=== PATIENT | male | born 1995 | race Caucasian/White ===

== ENCOUNTER 2020-12-04 19:24 | Emergency (ER) | payer MEDICAID ==
--- NOTE | 2020-12-04 20:33 | XRAY Report ---
PROCEDURE: Ankle 3 View LT INDICATIONS: fall, ankle pain TECHNIQUE: 3 views of the ankle were acquired. COMPARISON: None FINDINGS: Bones: No fractures or dislocations. Ankle mortise is normally aligned. No suspicious bony lesions . Soft tissues: No tibiotalar joint effusion. Achilles tendon appears normal. IMPRESSION: No fracture. No osseous lesion. If there are persistent symptoms or continued clinical concern for pa thology, then repeat plain film radiographs (7-10 days) or advanced imaging (CT, MR, bone scan) shoul d be considered for further evaluation. Reviewed by: Yelena Estes MD, PhD on 12/04/2020 8:31 PM PDT Approved by: Yelena Estes MD, PhD on 12/04/2020 8:31 PM PDT Station ID: [id number]
--- NOTE | 2020-12-04 20:36 | ED Physician Documentation ---
History of Present Illness - Stated complaint Stated Complaint: LEFT ANKLE PX - Chief complaint Chief Complaint: Trauma Ext - History obtained from History obtained from: Patient - Additonal information Additional information: 25yM, previously healthy, presents with calf pain sudden onset around 6:30 or 7pm while playing basketball when he moved his leg suddenly and felt aching in the lower calf, radiating upward. He was ambulatory on the calf immediately after with pain. went home and was told to come to the ED for eval for achilles tendon injury. FROM of ankle. Review of Systems Musculoskeletal: reports: Extremity pain. denies: Joint pain PD PAST MEDICAL HISTORY - Past Medical History Past Medical History: No - Past Surgical History Past Surgical History: No - Allergies Allergies/Adverse Reactions: Allergies Allergy/AdvReac Type Severity Reaction Status Date / Time No Known Drug Allergies Allergy Verified 12/04/20 19:31 - Social History Does the pt smoke?: No Smoking Status: Never smoker Does the pt drink ETOH?: Yes Does the pt have substance abuse?: No Substance Use and Type: Marijuana - Immunizations Immunizations are current?: Yes PD ED PE NORMAL - Vitals Vital signs reviewed: Yes - General General: Alert and oriented X 3, No acute distress, Well developed/nourished - HEENT HEENT: Atraumatic, PERRL, EOMI - Neck Neck: Supple, no meningeal sign - Extremities Extremities: No deformity, Other (L lower calf discomfort to palpation without significant swelling or deformity. discomfort with flexion at the ankle, relief with extension. FROM of BL ankles. 2+ BL DP pulses. normal sesnation and cap refill) - Neuro Neuro: No motor deficit, No sensory deficit - Psych Psych: Normal mood, Normal affect Results - Vitals Vitals: Vital Signs - 24 hr 12/04/20 12/04/20 19:31 19:56 Temperature 36.5 C 36.5 C Heart Rate 74 74 Respiratory 16 16 Rate Blood Pressure 119/78 119/78 O2 Saturation 97 98 Oxygen O2 Source Room air PD MEDICAL DECISION MAKING - ED course ED course: 25-year-old man presents for evaluation of left calf pain after hurting it while playing basketball. He appears to have a muscle strain of the Soleus/gastrocnemius muscle. nontender over achilles tendon with from of ankle without pain. Education given about symptom management and return precautions given. Patient will follow up with his primary doctor. Departure - Departure Disposition: Home, Self Care Clinical Impression: Pain of left calf Condition: Good Instructions: ED Strain Muscle Ext, ED RICE Comments: You were seen in the Emergency department for muscle strain. Make sure that you take ibuprofen 600 mg every 6 hours as needed for pain and to reduce inflammation. Elevate the extremity, rest, ice, and apply an Farhad wrap as needed. Return to the emergency department if you have any new or worsening symptoms or other concerns. Follow-up with your primary doctor. Forms: Activity restrictions
[2020-12-04 20:40] VITALS: BP 120/71
== END 2020-12-04 20:40 | disposition home or self-care (01) ==
LOC: ED 19:24
DX: M79.662 Pain in left lower leg (principal); S86.812A Strain of other muscle(s) and tendon(s) at lower leg level, left leg, initial encounter; X50.9XXA Other and unspecified overexertion or strenuous movements or postures, initial encounter; Y93.67 Activity, basketball
CPT/HCPCS: 99282; 99283